=== PATIENT | female | born 1950 | race Caucasian/White ===

== ENCOUNTER 2023-06-17 12:34 | Outpatient (CLI) | payer MEDICARE, OTHER ==
[~2023-06-17 12:34] MED LIST: Iopamidol 300 61% 100 ML VIAL FS ONE
== END 2023-06-17 12:35 | disposition home or self-care (01) ==
LOC: CSHCT 12:34
PROVIDERS: ATTEND Internal Medicine Hematology & Oncology
DX: C18.0 Malignant neoplasm of cecum (principal); I82.412 Acute embolism and thrombosis of left femoral vein; Z90.49 Acquired absence of other specified parts of digestive tract
CPT/HCPCS: 71260; 74177